=== PATIENT | male | born 1955 | race Caucasian/White ===

== ENCOUNTER 2020-10-14 20:40 | Inpatient (IN) | payer MEDICAID, SELFPAY ==
[2020-10-14] VITALS (10 sets, daily range): BP systolic 104–115; BP diastolic 59–65; PULSE 72–79; RESP 18–30; TEMP 31–38.6; O2SAT 88–92
--- NOTE | 2020-10-14 | DI.CT_ITS ---
Exam(s) CT CHEST PE CTA EXAM: CT CHEST PE CTA CLINICAL HISTORY: Covid, elevated d-dimer, hypoxemia. TECHNIQUE: Imaging Protocol: Axial CT angiography was performed with multi-slice acquisition and mu lti-planar and/or 3D reconstructions. CONTRAST MATERIAL: Intravenous: Omnipaque 350 Contrast volume:100 cc COMPARISON: No exams were available for comparison FINDINGS: Pulmonary Arteries: Evaluation somewhat limited due to respiratory motion at the lung bases. No evid ence of filling defect to suggest pulmonary emboli. Tracheobronchial tree: Patent where visualized. Mediastinum and Silvia: No dominant adenopathy or fluid collection. Pulmonary parenchyma: Bilateral patchy infiltrates, greatest in the left upper lobe. Atelectasis lef t lung base. Pleura: No effusion or pneumothorax. Heart: The heart is mildly dilated. Mild coronary artery calcifications are seen. Aorta: Thoracic aorta non-dilated. No dissection. Upper abdomen: Unremarkable. Bones: Unremarkable for age. IMPRESSION: No evidence of pulmonary embolism. Bilateral patchy infiltrates consistent patient's history of COVID RADIATION DOSE DELIVERED: 673.29mGy.cm Total DLP DATA REPOSITORY: All CT scans at this facility are submitted to the National Radiology Data Registry (NRDR) Dose Index Registry (DIR) with the [employer] (ACR). RADIATION OPTIMIZATION: All CT scans at this facility use at least one of these dose optimization te chniques: automated exposure control; mA and/or kV adjustment per patient size (includes targeted exa ms where dose is matched to clinical indication); or iterative reconstruction.
[2020-10-14 22:08] LABS: LDH 319 U/L (85-227)
[2020-10-14 22:09] LABS: Troponin I < 0.05 ng/mL (<0.06)
[2020-10-14 22:11] LABS: C-Reactive Protein 13.25 mg/dL (0.0-0.3)
[2020-10-14 22:24] LABS: D-Dimer 1588 ng/mlFEU (<500)
--- NOTE | 2020-10-14 22:32 | W.PM.HP.N ---
Date of service: 10/14/20 Time of Service: 22:33 Assessment and Plan Assessment and plan (1) Pneumonia due to COVID-19 virus: Status: Acute Assessment and plan: Moderate supplemental O2 demands. Resp to evaluate and begin High Flow NC vs BiPAP Remdesivir 200mg IV now, then 100mg daily. Dexamethasone 6 mg IV nightly. Lipitor 40mg nightly. Inflammatory markers obtained and will trend. Procalcitonin pending. He was initially given a dose of Rocephin and then sent home on Azithromycin when he left AMA from [facility]. CTA chest ordered. Consider antibiotics for possible superimposed bacterial pneumonia. Pulmonary medicine consulted. (2) Diabetes mellitus type 2 in obese: Status: Acute Assessment and plan: He takes metformin at home. Will hold; will be receiving IV contrast for CTA chest. AC and HS glucose monitoring. Sliding scale insulin correction dosing. Diabetic diet. (3) MAHESH (obstructive sleep apnea): Status: Chronic Assessment and plan: He dose have a home CPAP appliance. Not currently here. (4) Hypertension: Status: Chronic Assessment and plan: Cont home lisinopril at 20mg daily. Monitor. (5) High cholesterol: Status: Chronic Assessment and plan: On atorvastatin 20mg daily at home. Increase to 40mg daily. History of Present Illness History of Present Illness Chief Complaint: Shortness of breath Narrative: This is a 64 yo male that was a direct admit from the ED at ; no beds available there or at the area tertiary care hospitals. He has a PMH of DM2, HLD, MAHESH, HTN. He initially presented to [facility] on 10/12/2020 d/t shortness of breath. He was febrile and Covid 19 was positive. CXR concerning for PNA. Given IV Rocephin and Azithromycin in the ED. Pt refused to stay and left AMA. Home O2 was, [id number] arranged for him. He stated he quarantined at home. At the time of the second presentation via EMS, to [facility] ED, he continued to be short of air and hypoxic with O2 saturations in the 80's. He was initiated on a nonrebreather. He endorsed feeling lightheaded at home and he subsequently fell and hit his scalp on the corner of a desk; incurring a laceration. He endorses nausea for 1 week. No emesis. No loss of sense of taste. Cough has been minimal; no sputum. WBC count was normal at 6.9. Hgb 13.6. Platelets 176. BUN 16, creatinine 0.9. Na 137. K 3.4. CXR showed a increase from the previous xray of the infiltrate in the left lung. Other patchy areas of infiltrates noted bilaterally. Subsemental atelectasis in the left lower lobe. On arrival at [facility] he required 6L NC to maintain O2 saturation of 88-89%. Temp of 38.6. Inflammatory markers obtained: D-dimer of 1588, ferritin 989, LDH 319, Troponin neg, CRP 13.25. Procal ordered and pending. Review of Systems All systems reviewed & are unremarkable except as noted in HPI and below [facility] Medical History (Updated 10/14/20 @ 23:09 by Miguel Wong MD) Diabetes mellitus High cholesterol Hypertension Obesity Family History Other Cancer Diabetes Social History Smoking/Tobacco Use Status: Former Tobacco Use Quit Date: 09/30/05 Tobacco: How many years used: 12 Smoking risk assessment performed?: Yes Alcohol Intake: never Drug use: Never Do you feel safe at home: Yes Do you feel safe in your relationship?: No Additional Social history: pt claimed he did not hit/hurt on his past relationships Exam Const General: cooperative and no acute distress Nutritional Appearance: obese Orientation: alert and oriented x3 HENWV Head: normocephalic and laceration (8 cm at crown of head; margins approximated with dermabond (at [facility])) Eyes Sclera: sclerae normal Pupils: PERRL Neck Neck: full ROM and no JVD Resp Effort & Inspection: normal respiratory effort Auscultation: clear to auscultation bilaterally (anteriorly) Cardio Rate: regular rate Rhythm: regular rhythm Heart Sounds: S1 normal and S2 normal GI Palpation: soft and nontender Skin General skin exam: no rashes or lesions noted Neuro General: moves all extremities Cranial Nerves: facial strength normal Cognition: normal cognition Speech: speech normal Extrem General: no pedal edema and no calf tenderness Psych Appearance: grossly normal Mental Status: mental status grossly normal Speech and Movement: speech and movement normal Mood: congruent mood Affect: normal affect Results Labs Labs: Laboratory Results - last 24 hr 10/14/20 10/14/20 10/14/20 21:40 21:40 21:40 D-Dimer 1588 H Lactate Dehydrogenase 319 H Troponin I < 0.05 C-Reactive Protein 13.25 H Last Vital Signs Temp 38.6 C H 10/14/20 22:00 Pulse 73 10/14/20 22:00 Resp 25 H 10/14/20 22:00 BP 110/60 10/14/20 22:00 Pulse Ox 91 L 10/14/20 22:00
[2020-10-14 22:39] LABS: Ferritin 989 ng/mL (26-388)
[2020-10-14 22:49] LABS: Procalcitonin < 0.1 ng/mL
[2020-10-14] MEDS: REMDESIVIR 200 MG in Normal Saline 250 ML 250 MG IVPB (23:00)
[2020-10-14] MEDS: Acetaminophen 325 MG TAB 650 MG PO (23:30)
[2020-10-14] MEDS: Dexamethasone 10 MG/ML VIAL 6 MG IVP (23:30)
[2020-10-14] MEDS: Melatonin 3 MG TAB 4.5 MG PO (23:30)
[2020-10-15] VITALS (48 sets, daily range): BP systolic 94–126; BP diastolic 48–75; PULSE 52–117; RESP 14–33; TEMP 31–37; O2SAT 86–98
[2020-10-15] MEDS: Atorvastatin 40 MG TAB PO ×2 (00:14→21:20)
[2020-10-15] MEDS: Omnipaque 350 MG/ML 100 ML BTL IJ (00:27)
[2020-10-15] MEDS: Normal Saline Flush 10 ML SYR IVP ×2 (00:51→21:19)
--- NOTE | 2020-10-15 01:23 | DI.VRAD_ITS ---
PROCEDURE INFORMATION: Exam: CTA Chest With Contrast Exam date and time: 10/14/2020 10:50 PM Age: 64 years old Clinical indication: Abnormal findings; Abnormal diagnostic tests; Fever and shortness of breath and other: Hypoxemia; Patient HX: Covid, elevated d-dimer, hypoxemia TECHNIQUE: Imaging protocol: Computed tomographic angiography of the chest with contrast. 3D rendering (Not supervised by radiologist): MIP and/or 3D reconstructed images were created by the technologist. Radiation optimization: All CT scans at this facility use at least one of these dose optimization techniques: automated exposure control; mA and/or kV adjustment per patient size (includes targeted exams where dose is matched to clinical indication); or iterative reconstruction. Contrast material: OMNIPAQUE 350; Contrast volume: 100 ml; Contrast route: INTRAVENOUS (IV); COMPARISON: No relevant prior studies available. FINDINGS: Pulmonary arteries: Evaluation of the very distal subsegmental pulmonary artery branches is limited due to respiratory motion artifact and contrast bolus timing. No evidence for a pulmonary embolism within the remaining pulmonary arteries. No large central or saddle embolus. Aorta: The thoracic aorta opacifies normally with contrast without aneurysm or dissection. Lungs: Patchy bilateral reticulonodular pulmonary opacities is seen with more confluent crazy paving opacification seen within the bilateral upper lobes, left greater than right. Pleural spaces: A tiny left-sided pleural effusion is seen. No right-sided pleural effusion. Heart: The heart is mildly enlarged. No pericardial effusion. No evidence for right heart strain. RV/LV ratio 0.8. Mediastinal space: The esophagus is dilated and patulous. Mild wall thickening within the distal esophagus. Tiny hiatal hernia. Lymph nodes: Prominent lymph nodes are seen within the mediastinum and bilateral manuel, likely reactive. Liver: The liver is moderately enlarged and significantly fatty infiltrated. Gallbladder and bile ducts: The imaged gallbladder is normal appearance. Pancreas: The imaged portions of the pancreas are normal appearance. The pancreatic duct is normal appearance. Spleen: Mild splenomegaly. Adrenal glands: The bilateral adrenal glands are normal appearance. Kidneys and ureters: The bilateral superior renal poles are normal appearance. Stomach and bowel: Mild wall thickening within the gastric folds. Bones/joints: Diffuse idiopathic skeletal hyperostosis throughout the mid and lower thoracic spine. No evidence for acute compression fracture. Soft tissues: Unremarkable. IMPRESSION: 1. No evidence for a pulmonary embolism. Please note, the very distal subsegmental branches are not well evaluated due to respiratory motion artifact and contrast bolus timing. No thoracic aortic aneurysm or evidence for right heart strain. 2. Low lung volumes with diffuse patchy pulmonary infiltrate, concordant with Covid-19 pneumonia. This involves approximately 60-70% of the lung parenchyma. 3. Gastroesophagitis. Dictated and Authenticated by: Pari Carrera MD. Ordering:JAJA Rivera MD
--- NOTE | 2020-10-15 02:51 | NUR.NOTE ---
Nursing Note: Patient taken down for CT Chest with contrast at 00:30H by pt's bed, connected to Oxymask 10L SpO2 96%, this rfp writer and JEANCARLOS Segura escorted the pt to CT scan room. Pt came back to room at 01:05H.
[2020-10-15 06:55] LABS: Abs Immature Grans 0.08 10^3/uL (0.0-0.06); HCT 37.8 % (40.0-50.0); HGB 12.7 g/dL (13.5-17.5); MCH 30.9 pg (27.0-33.0); MCHC 33.6 % (32.0-36.0); MPV 10.1 fL (8.0-11.0); Nucleated RBC 0 %; Platelet Count 190 10^3/uL (130-400); RBC 4.11 10^6/uL (4.36-5.78); RDW 12.2 % (11.8-14.1); WBC 4.59 10^3/uL (4.4-10.8)
[2020-10-15 07:15] LABS: ALT 45 U/L (16-63); AST 37 U/L (15-37); Albumin 2.4 g/dL (3.4-5.0); Alkaline Phosphatase 59 U/L (46-116); Anion Gap 8.5 mmol/L (3-11); BUN 15 mg/dL (7-18); Bilirubin, Total 0.7 mg/dL (0.2-1.0); C-Reactive Protein 12.86 mg/dL (0.0-0.3); CO2 28.5 mmol/L (21.0-32.0); CREATININE 0.9 mg/dL (0.70-1.30); Chloride 103 mmol/L (98-107); Glucose 222 mg/dL (74-106); LDH 381 U/L (85-227); Potassium 3.8 mmol/L (3.5-5.1); Sodium 140 mmol/L (136-145); Total Protein 6.8 g/dL (6.4-8.2); Troponin I < 0.05 ng/mL (<0.06)
[2020-10-15 07:23] LABS: Absolute Lymphocyte Count 0.46 10^3/uL (1.2-3.4); Absolute Monocyte Count 0.09 10^3/uL (0.1-0.8); Absolute Neutrophil Count 4.04 10^3/uL (1.2-6.7); Atypical Lymphocytes % 3; Bands % 7; Diff Comment Manual Differential; Magnesium 1.8 mg/dL (1.8-2.4); RBC Morphology Normal
[2020-10-15 07:47] LABS: D-Dimer 1484 ng/mlFEU (<500)
[2020-10-15 08:04] LABS: Ferritin 1471 ng/mL (26-388)
--- NOTE | 2020-10-15 08:30 | RT.EKG_ITS ---
APPROVED REPORT Exam: Resting ECG Reason for Exam: wide complex tachycardia Patient Location: I HR:71 bpm ECG Measurements Heart Rate 71 AXIS MO 156 P 13 QRSd 97 QRS -32 QT 419 T -26 QTc 456 Conclusion Sinus rhythm...normal P axis, V-rate 60- 99 Left axis deviation...QRS axis (-30,-90) Nonspecific T abnormalities, inferior leads...T <-0.10mV, II III aVF
[2020-10-15] MEDS: Enoxaparin 40 MG/0.4 ML SYR SC (10:13)
[2020-10-15] MEDS: Lisinopril 20 MG TAB PO (10:13)
[2020-10-15] MEDS: Insulin Aspart 300 UNITS/3 ML PEN SC ×3 (10:13→17:18)
--- NOTE | 2020-10-15 13:07 | PDOC.CMIN ---
- If Service Date Differs Date of service: 10/15/20 Time of Service: 13:08 Care Management Initial Assess REASON FOR HOSPITALIZATION:: COVID positive, Pneumonia PAST MEDICAL HISTORY/PAST SURGICAL HISTORY:: Diabetes mellitus. High cholesterol. Hypertension. Obesity PREVIOUS FUNCTIONAL STATUS/SOCIAL/FAMILY SUPPORTS:: Resides in [place], [place], . His NOK is his daughter, Kathi Juarez. Prior to admission he required oxygen therapy, transportation. CURRENT FUNCTIONAL STATUS:: Alistair is on Covid precautions in the ICU, he transferred from [facility]. ADVANCE DIRECTIVES:: None on file at [facility]. Has patient been provided with info about the portal/API?: No Did the patient sign up for the portal?: No CODE STATUS:: Full Code INSURANCE COVERAGE / FINANCIAL ISSUES:: Medicaid CURRENT HOME/COMMUNITY SERVICES/EQUIPMENT:: Grab bars, oxygen, hand held shower PRIMARY CARE PHYSICIAN:: Aishwarya Aiken POTENTIAL DISCHARGE NEEDS:: Follow up appointments. PATIENT/FAMILY EDUCATION NEEDS:: Review of discharge instructions, discuss Ask Me Three. ANTICIPATED BARRIERS TO DISCHARGE:: None identified. TRANSPORTATION:: Via private vehicle with [id number]. PLAN:: Alistair remains in the ICU at [facility]-being treated for Covid Pneumonia. CM continues to follow.
--- NOTE | 2020-10-15 13:23 | PUCC_ITS ---
General Date of Service Date of service: 10/15/20 Time of Service: 08:30 Reason for Admission to ICU: COVID Pneumonia Assessment and Plan Assessment and plan (1) Pneumonia due to COVID-19 virus: Status: Acute (2) Respiratory failure with hypoxia: Status: Acute Assessment and plan: This is a 64-year-old male with hypoxic respiratory failure due to Covid pneumonia. He is receiving remdesivir and Decadron and did receive 1 dose today of sarilumab as his inflammatory markers were significantly elevated. He is unvaccinated and when I asked him why he said he was not sure he just did not want to get it. He is unsure where he caught COVID from but has been feeling ill for at least a week. His obesity and MAHESH will make him more difficult to properly oxygenate and and ventilate however he seems to do well on CPAP therapy. Recent data has shown that CPAP is superior to high flow nasal cannula in COVID-19 patients and so would recommend he remain on CPAP as much as possible with high flow nasal cannula use for breaks. He should remain on CPAP for the entire night. Once he begins to improve we can start weaning down his CPAP usage. Qualifiers: Chronicity: acute Qualified Code(s): J96.01 - Acute respiratory failure with hypoxia Recommendations Pulmonary: Hypoxic respiratory failure - continue CPAP for sat >90% - can use HFNC for breaks - CPAP overnight - would recommend diuresis - proning as much as possible - aspiration precautions MAHESH - has a home unit Cardiac: Hypertension - on lisinopril, I recommend holding this in order to facilitate diuresis and prevent MARY - if becoming hypertensive can use short acting agent such has hydralazine PO prn - once he is less acutely ill then we can restart the ACEI Renal: No acute concerns, but again would recommend diuresis to have a negative fluid balance by tomorrow - discontinue any IVF - electrolyte replacement can be done with PO meds - strict I&O's I&O: Intake & Output 10/12/20 10/13/20 10/14/20 10/15/20 23:59 23:59 23:59 23:59 Intake Total 260 / 260 530 / 530 Output Total 250 / 250 750 / 750 Balance -220 / -220 Weight 123 kg 123 kg Daily Fluid Goal:: -500cc to -1L GI Nutrition: Ok for diet Date of Last Bowel Movement: 10/14/20 Infectious Disease: COVID Pneumonia - continue remdesivir and Decadron - procalcitonin is negative - no indication for antibiotics at this time - blood cultures pending - s/p Sarilumab Hematologic: No acute concerns Neurologic: No acute concerns delerium prevention with normal day/night cycles Endocrine: Diabetes - on SSI Lines: PIV Prophylaxis: Lovenox for DVT ppx No indication for GI ppx at this time I spent a total of 60 minutes with this patient including bedside assessment, rounding with nursing and respiratory therapy, coordination of care with the hospitalist, precharting and documentation. Code Status: Resuscitation Status Full Code Subjective Critical and life-threatening events over the past 24 hours: This is a 64-year-old male with a medical history of obesity, MAHESH, diabetes who was not COVID-19 vaccinated who presents to the emergency department at [facility] for shortness of breath. He was discovered to have Covid pneumonia however they had no beds at [facility] and so was sent here as there were also no beds at any of the area at [place] or [facility]. He did present previously on 10/12/2020 to the [facility] ER and was recommended to be admitted however he left AMA. He was arranged for home oxygen at that time and stated that he quarantined at home however progressively worsened and was found to be saturating in the 80s. He initially was slated to go to [facility] however upon arrival was found to be quite hypoxic requiring high flow nasal cannula and so was placed in the ICU. He also underwent a chest CT that shows multi lobar pneumonia with early signs of organization consistent with COVID-19 pneumonia. This morning he states he is feeling okay. He was on high flow night and nasal cannula during my interview however had frequent desaturations to the mid 80s. His inflammatory markers were found to be elevated however he has normal transaminases. Exam Const General: no acute distress Nutritional Appearance: obese HENSD Head: normocephalic Ears: external ears normal General nose exam: nasal mucous membranes and turbinates normal Face and sinus: sinuses nontender Mouth: oropharynx normal and moist mucous membranes Teeth and gingiva: dentition normal Eyes General: appearance normal, both eyes and all related structures Pupils: PERRL Neck Neck: normal visual inspection and no lymphadenopathy Chest Chest: normal inspection of the chest Resp Effort & Inspection: normal respiratory effort Auscultation: clear to auscultation bilaterally, diminished lung sounds (due to body habitus and COVID stethoscope) bilaterally, no rales, no rhonchi and no wheezes Cardio Rate: regular rate Rhythm: regular rhythm Heart Sounds: S1 normal, S2 normal and no murmurs Pulses: radial pulses present bilaterally GI Inspection: normal to inspection Palpation: soft Skin General skin exam: no rashes or lesions noted Neuro General: patient alert, patient awake and patient oriented x3 Extrem General: no clubbing, no cyanosis and edema Laterality: bilateral Psych Mental Status: mental status grossly normal Affect: normal affect Attitude: cooperative Most Recent VS/Results Last Vital Signs Temp 36.1 C L 10/15/20 11:30 Pulse 71 10/15/20 10:20 Resp 14 10/15/20 10:20 BP 117/75 10/15/20 10:01 Pulse Ox 97 10/15/20 12:33 Laboratory Results - last 24 hr 10/14/20 10/14/20 10/14/20 21:40 21:40 21:40 WBC RBC Hgb Hct MCV MCH MCHC RDW Plt Count MPV Immature Gran % Neutrophils % Band Neutrophils % Lymphocytes % Atypical Lymphs % Monocytes % Eosinophils % Basophils % Nucleated RBC % Absolute Neutrophils Absolute Lymphocytes Absolute Monocytes Absolute Eosinophils Absolute Basophils RBC Morphology D-Dimer 1588 H Sodium Potassium Chloride Carbon Dioxide Anion Gap BUN Creatinine Estimated GFR/1.73 m2 Glucose Calcium Magnesium Ferritin 989 H Total Bilirubin AST ALT Alkaline Phosphatase Lactate Dehydrogenase Troponin I C-Reactive Protein 13.25 H Total Protein Albumin Procalcitonin < 0.1 10/14/20 10/15/20 10/15/20 21:40 06:30 06:30 WBC RBC Hgb Hct MCV MCH MCHC RDW Plt Count MPV Immature Gran % Neutrophils % Band Neutrophils % Lymphocytes % Atypical Lymphs % Monocytes % Eosinophils % Basophils % Nucleated RBC % Absolute Neutrophils Absolute Lymphocytes Absolute Monocytes Absolute Eosinophils Absolute Basophils RBC Morphology D-Dimer Sodium 140 Potassium 3.8 Chloride 103 Carbon Dioxide 28.5 Anion Gap 8.5 BUN 15 Creatinine 0.9 Estimated GFR/1.73 m2 >= 60.00 Glucose 222 H Calcium 8.0 L Magnesium 1.8 Ferritin 1471 H Total Bilirubin 0.7 AST 37 ALT 45 Alkaline Phosphatase 59 Lactate Dehydrogenase 319 H 381 H Troponin I < 0.05 < 0.05 C-Reactive Protein 12.86 H Total Protein 6.8 Albumin 2.4 L Procalcitonin 10/15/20 10/15/20 06:30 06:30 WBC 4.59 RBC 4.11 L Hgb 12.7 L Hct 37.8 L MCV 92.0 MCH 30.9 MCHC 33.6 RDW 12.2 Plt Count 190 MPV 10.1 Immature Gran % 0.0 Neutrophils % 81.0 Band Neutrophils % 7 Lymphocytes % 7.0 Atypical Lymphs % 3 Monocytes % 2.0 Eosinophils % 0.0 Basophils % 0.0 Nucleated RBC % 0 Absolute Neutrophils 4.04 Absolute Lymphocytes 0.46 L Absolute Monocytes 0.09 L Absolute Eosinophils 0.00 Absolute Basophils 0.00 RBC Morphology Normal D-Dimer 1484 H Sodium Potassium Chloride Carbon Dioxide Anion Gap BUN Creatinine Estimated GFR/1.73 m2 Glucose Calcium Magnesium Ferritin Total Bilirubin AST ALT Alkaline Phosphatase Lactate Dehydrogenase Troponin I C-Reactive Protein Total Protein Albumin Procalcitonin Review of Systems All systems reviewed & are unremarkable except as noted in HPI and below Constitutional Constitutional: Reports body ache(s), Reports fatigue and Reports snoring Cardiovascular Cardiovascular: Reports dyspnea, Reports dyspnea on exertion and Reports orthopnea Respiratory Respiratory: Reports cough, Reports dyspnea, Reports dyspnea on exertion and Reports snoring Endocrine Endocrine: Reports fatigue
[2020-10-15] MEDS: Dexamethasone 10 MG/ML VIAL 6 MG IVP (21:19)
[2020-10-15] MEDS: Melatonin 3 MG TAB 4.5 MG PO (21:20)
[2020-10-16] VITALS (38 sets, daily range): BP systolic 90–161; BP diastolic 35–123; PULSE 50–107; RESP 16–30; TEMP 31–36.3; O2SAT 88–97
--- NOTE | 2020-10-16 08:10 | W.PM.PROGNOT ---
Date of Service Date of service: 10/15/20 Time of Service: 12:10 Assessment and Plan Assessment and plan (1) Pneumonia due to COVID-19 virus: Status: Acute Assessment and plan: Moderate supplemental O2 demands. Resp to evaluate and begin High Flow NC vs BiPAP Remdesivir 200mg IV given, then 100mg daily. Dexamethasone 6 mg IV nightly. Lipitor 40mg nightly. Inflammatory markers obtained and will trend. Procalcitonin neg He was initially given a dose of Rocephin and then sent home on Azithromycin when he left AMA from [facility]. CTA chest; No evidence of pulmonary embolism. Bilateral patchy infiltrates consistent patient's history of COVID Pulmonary medicine consulted. (2) Diabetes mellitus type 2 in obese: Status: Acute Assessment and plan: He takes metformin at home. Will hold; will be receiving IV contrast for CTA chest. AC and HS glucose monitoring. Sliding scale insulin correction dosing. Diabetic diet. Glucose running high; likely d/t IV steroid. Adjusting insulin. (3) MAHESH (obstructive sleep apnea): Status: Chronic Assessment and plan: Utilizing CPAP as COVID 19 intervention. Uses CPAP at home. (4) Hypertension: Status: Chronic Assessment and plan: Cont home lisinopril at 20mg daily. Normotensive. Monitor. (5) High cholesterol: Status: Chronic Assessment and plan: On atorvastatin 20mg daily at home. Increase to 40mg daily. Subjective Subjective Patient reports: tolerating a regular diet and afebrile; denies nausea Interval history since last seen: Tolerating CPAP Exam Const General: cooperative and no acute distress Nutritional Appearance: obese Orientation: alert and oriented x3 HENMT Head: normocephalic and laceration (8 cm at crown of head; margins approximated with dermabond (at [facility])) Eyes Sclera: sclerae normal Pupils: PERRL Neck Neck: full ROM and no JVD Resp Effort & Inspection: normal respiratory effort Auscultation: clear to auscultation bilaterally (anteriorly) Cardio Rate: regular rate Rhythm: regular rhythm Heart Sounds: S1 normal and S2 normal GI Palpation: soft and nontender Skin General skin exam: no rashes or lesions noted Neuro General: moves all extremities Cranial Nerves: facial strength normal Cognition: normal cognition Speech: speech normal Extrem General: no pedal edema and no calf tenderness Psych Appearance: grossly normal Mental Status: mental status grossly normal Speech and Movement: speech and movement normal Mood: congruent mood Affect: normal affect Objective Last Vital Signs Temp 36.2 C L 10/16/20 04:42 Pulse 55 L 10/16/20 06:01 Resp 24 10/16/20 06:01 BP 107/52 L 10/16/20 06:01 Pulse Ox 96 10/16/20 06:01
[2020-10-16 09:03] LABS: D-Dimer 1397 ng/mlFEU (<500)
[2020-10-16 09:11] LABS: C-Reactive Protein 6.84 mg/dL (0.0-0.3)
[2020-10-16 09:13] LABS: Ferritin 1644 ng/mL (26-388)
[2020-10-16] MEDS: Enoxaparin 40 MG/0.4 ML SYR SC (09:51)
[2020-10-16] MEDS: Lisinopril 20 MG TAB PO (09:51)
[2020-10-16] MEDS: Insulin Aspart 300 UNITS/3 ML PEN SC ×3 (09:52→17:15)
[2020-10-16] MEDS: Insulin Glargine 300 UNITS/3 ML PEN 15 UNITS SC (10:09)
--- NOTE | 2020-10-16 11:31 | W.PULMCC ---
General Date of Service Date of service: 10/16/20 Time of Service: 08:45 Reason for Admission to ICU: COVID Pneumonia Assessment and Plan Assessment and plan (1) Pneumonia due to COVID-19 virus: Status: Acute (2) Respiratory failure with hypoxia: Status: Acute Assessment and plan: This is a 64-year-old male with hypoxic respiratory failure due to Covid pneumonia. He is receiving remdesivir and Decadron and did receive 1 dose today of sarilumab as his inflammatory markers were significantly elevated. He is unvaccinated and when I asked him why he said he was not sure he just did not want to get it. He is unsure where he caught COVID from but has been feeling ill for at least a week. His obesity and MAHESH will make him more difficult to properly oxygenate and and ventilate however he seems to do well on CPAP therapy. Recent data has shown that CPAP is superior to high flow nasal cannula in COVID-19 patients and so would recommend he remain on CPAP as much as possible with high flow nasal cannula use for breaks. He should remain on CPAP for the entire night. Once he begins to improve we can start weaning down his CPAP usage. His CRP decreased from 12-6 with the administration of sarilumab. Qualifiers: Chronicity: acute Qualified Code(s): J96.01 - Acute respiratory failure with hypoxia Recommendations Pulmonary: Hypoxic respiratory failure - continue CPAP for sat >90% - can use HFNC for breaks - CPAP overnight - would recommend diuresis - proning as much as possible - aspiration precautions MAHESH - has a home unit Cardiac: Hypertension - on lisinopril, I recommend holding this in order to facilitate diuresis and prevent MARY - if becoming hypertensive can use short acting agent such has hydralazine PO prn - once he is less acutely ill then we can restart the ACEI Renal: No acute concern - discontinue any IVF - electrolyte replacement can be done with PO meds - strict I&O's I&O: Intake & Output 10/13/20 10/14/20 10/15/20 10/16/20 23:59 23:59 23:59 23:59 Intake Total 260 / 260 790 / 790 Output Total 250 / 250 1100 / 1100 400 / 400 Balance -310 / -310 -400 / -400 Weight 123 kg 123 kg 121.5 kg Daily Fluid Goal:: -1L in 24 hours GI Nutrition: OK for diet Date of Last Bowel Movement: 10/15/20 Infectious Disease: COVID Pneumonia - continue remdesivir and Decadron - procalcitonin is negative - no indication for antibiotics at this time - blood cultures pending - s/p Sarilumab Hematologic: No acute concerns Neurologic: No acute concerns - delerium prevention Endocrine: Diabetes - on SSI Lines: PIV Prophylaxis: Lovenox for DVT ppx No indication for GI ppx Spent a total of 30 minutes with this patient including chart review, documentation, rounding with nursing and respiratory therapy, as well as assessment. Code Status: Resuscitation Status Full Code Subjective Critical and life-threatening events over the past 24 hours: Patient remained on CPAP overnight and did quite well with his FiO2 requirements dropping to 45%. He states it is certainly easier to breathe while he is wearing the mask. He is doing his best to lay on his side but is having trouble laying on his stomach. Exam Const General: no acute distress Nutritional Appearance: obese HENMT Head: normocephalic Ears: external ears normal General nose exam: nasal mucous membranes and turbinates normal Face and sinus: sinuses nontender Mouth: oropharynx normal and moist mucous membranes Teeth and gingiva: dentition normal Eyes General: appearance normal, both eyes and all related structures Pupils: PERRL Neck Neck: normal visual inspection and no lymphadenopathy Chest Chest: normal inspection of the chest Resp Effort & Inspection: normal respiratory effort Auscultation: clear to auscultation bilaterally, diminished lung sounds (due to body habitus and COVID stethoscope) bilaterally, no rales, no rhonchi and no wheezes Cardio Rate: regular rate Rhythm: regular rhythm Heart Sounds: S1 normal, S2 normal and no murmurs Pulses: radial pulses present bilaterally GI Inspection: normal to inspection Palpation: soft Skin General skin exam: no rashes or lesions noted Neuro General: patient alert, patient awake and patient oriented x3 Extrem General: no clubbing, no cyanosis and edema Laterality: bilateral Psych Mental Status: mental status grossly normal Affect: normal affect Attitude: cooperative Most Recent VS/Results Last Vital Signs Temp 36.2 C L 10/16/20 04:42 Pulse 76 10/16/20 08:35 Resp 16 10/16/20 08:45 BP 107/52 L 10/16/20 06:01 Pulse Ox 96 10/16/20 08:45 Laboratory Results - last 24 hr 10/16/20 10/16/20 07:45 07:45 D-Dimer 1397 H Ferritin 1644 H C-Reactive Protein 6.84 H Review of Systems All systems reviewed & are unremarkable except as noted in HPI and below Constitutional Constitutional: Reports body ache(s), Reports fatigue and Reports snoring Cardiovascular Cardiovascular: Reports dyspnea, Reports dyspnea on exertion and Reports orthopnea Respiratory Respiratory: Reports cough, Reports dyspnea, Reports dyspnea on exertion and Reports snoring Endocrine Endocrine: Reports fatigue
[2020-10-16] MEDS: Furosemide 40 MG/4 ML VIAL IVP (12:17)
--- NOTE | 2020-10-16 16:24 | CMPROGNOTE_ITS ---
Care Management Progress Note S/O: Alistair remains in the ICU at [facility]-being treated for Covid Pneumonia. Nursing has been in touch with his daughters and he is speaking with them on his cell phone as well. reports Alistair is making medical gains at this time. ID reports he will be off precautions on 10/22/20. CM continues to follow. A: 64 year old male admitted to [facility] from [facility] 10/14/20 for Covid Pneumonia P: Alistair remains in the ICU at [facility]-being treated for Covid Pneumonia. CM continues to follow.
--- NOTE | 2020-10-16 16:57 | PGE_ITS ---
Date of Service Date of service: 10/16/20 Time of Service: 16:57 Assessment and Plan Assessment and plan (1) Pneumonia due to COVID-19 virus: Status: Acute Assessment and plan: Moderate supplemental O2 demands. Resp to evaluate and begin High Flow NC vs BiPAP Remdesivir 200mg IV given, then 100mg daily. Dexamethasone 6 mg IV nightly. Lipitor 40mg nightly. Inflammatory markers obtained and will trend. CRP normalized. Procalcitonin neg He was initially given a dose of Rocephin and then sent home on Azithromycin when [facility] CTA chest; No evidence of pulmonary embolism. Bilateral patchy infiltrates consistent patient's history of COVID Pulmonary medicine consulted. (2) Diabetes mellitus type 2 in obese: Status: Acute Assessment and plan: He takes metformin at home. Will hold; will be receiving IV contrast for CTA chest. AC and HS glucose monitoring. Sliding scale insulin correction dosing. Diabetic diet. Glucose running high; likely d/t IV steroid. Adjusting insulin. (3) MAHESH (obstructive sleep apnea): Status: Chronic Assessment and plan: Utilizing CPAP as COVID 19 intervention. Uses CPAP at home. (4) Hypertension: Status: Chronic Assessment and plan: Cont home lisinopril at 20mg daily. Normotensive. Monitor. (5) High cholesterol: Status: Chronic Assessment and plan: On atorvastatin 20mg daily at home. Increase to 40mg daily. Subjective Subjective Patient reports: tolerating a regular diet and afebrile; denies nausea Interval history since last seen: Tolerating CPAP Exam Const General: cooperative and no acute distress Nutritional Appearance: obese Orientation: alert and oriented x3 HENMT Head: normocephalic and laceration (8 cm at crown of head; margins approximated with dermabond (at [facility])) Eyes Sclera: sclerae normal Pupils: PERRL Neck Neck: full ROM and no JVD Resp Effort & Inspection: normal respiratory effort Auscultation: clear to auscultation bilaterally (anteriorly) Cardio Rate: regular rate Rhythm: regular rhythm Heart Sounds: S1 normal and S2 normal GI Palpation: soft and nontender Skin General skin exam: no rashes or lesions noted Neuro General: moves all extremities Cranial Nerves: facial strength normal Cognition: normal cognition Speech: speech normal Extrem General: no pedal edema and no calf tenderness Psych Appearance: grossly normal Mental Status: mental status grossly normal Speech and Movement: speech and movement normal Mood: congruent mood Affect: normal affect Objective Last Vital Signs Temp 36.1 C L 10/16/20 13:30 Pulse 68 10/16/20 16:28 Resp 19 10/16/20 16:28 BP 107/48 L 10/16/20 16:28 Pulse Ox 92 10/16/20 16:28 Laboratory Results - last 24 hr 10/16/20 10/16/20 07:45 07:45 D-Dimer 1397 H Ferritin 1644 H C-Reactive Protein 6.84 H
--- NOTE | 2020-10-16 17:13 | PHA.REVIEW ---
Pharmacy Admission Review - Admission Clinical Review (Last Updated 10/14/20 @ 23:09 by Miguel Wong MD) Respiratory failure with hypoxia (Acute) Diabetes mellitus type 2 in obese (Acute) Pneumonia due to COVID-19 virus (Acute) Resuscitation Status Full Code Height 6 ft Weight 121.5 kg - Renal Dosing Renal Dosing: BUN 15 mg/dL (7-18) 10/15/20 06:30 Creatinine 0.9 mg/dL (0.70-1.30) 10/15/20 06:30 Medications needing adjustments: Reviewed - Anticoagulation Anticoagulation: Hgb 12.7 g/dL (13.5-17.5) L 10/15/20 06:30 Hct 37.8 % (40.0-50.0) L 10/15/20 06:30 Plt Count 190 10^3/uL (130-400) 10/15/20 06:30 Creatinine 0.9 mg/dL (0.70-1.30) 10/15/20 06:30 DVT Prophylaxis: Reviewed Medications: Enoxaparin - Opiate Usage Evaluate Pain Scale/Pains Meds: N/A - Relevant Labs Sodium 140 mmol/L (136-145) 10/15/20 06:30 Potassium 3.8 mmol/L (3.5-5.1) 10/15/20 06:30 Chloride 103 mmol/L (98-107) 10/15/20 06:30 Magnesium 1.8 mg/dL (1.8-2.4) 10/15/20 06:30 C-Reactive Protein 6.84 mg/dL (0.0-0.3) H 10/16/20 07:45 Electrolytes, C-Reactive P, ESR: Reviewed - DM Control DM Control: Glucose 222 mg/dL (74-106) H 10/15/20 06:30 Finger Stick Blood Glucose 333 Finger Stick Blood Glucose 333 Finger Stick Blood Glucose 333 Finger Stick Blood Glucose 369 Finger Stick Blood Glucose 369 Insulin Dosing: Reviewed (glargine at 15u daily, aspart per SS) - Heart Failure/NY Heart Failure/NY: Troponin I < 0.05 ng/mL (<0.06) 10/15/20 06:30 EF%, HALLEY's, B-Blockers, Diuretics: Reviewed - BP Control BP Control: Blood Pressure 107/48 Blood Pressure 161/123 Blood Pressure 90/47 Blood Pressure 93/56 Blood Pressure 111/56 Blood Pressure 108/85 Blood Pressure 93/42 Blood Pressure 107/52 Blood Pressure 109/54 - Qtc Review If Elevated: N/A - IV to PO Switch IV Medications: Reviewed - Home Meds Home Med List reviewed: Reviewed Relevent Home Meds Not ordered & why?: none reported - Current meds Current Medication Order Review: Reviewed (decadron, remdisivir, and x1 200mg dose of sarilumab given subcutaneously as tocilizumab is currently backordered) - Comments Comments/Follow Ups: sarilumab dose could possibly be repeated if inflammatory markers remain elevated; will continue to monitor BMP and glucose control
[2020-10-16] MEDS: Atorvastatin 40 MG TAB PO (19:30)
[2020-10-16] MEDS: Melatonin 3 MG TAB 4.5 MG PO (22:27)
[2020-10-16] MEDS: Dexamethasone 10 MG/ML VIAL 6 MG IVP (22:29)
[2020-10-16] MEDS: Normal Saline Flush 10 ML SYR IVP (22:31)
[2020-10-17] VITALS (39 sets, daily range): BP systolic 90–133; BP diastolic 35–65; PULSE 48–92; RESP 12–28; TEMP 31–36.6; O2SAT 91–98
[2020-10-17] MEDS: Normal Saline Flush 10 ML SYR IVP ×3 (00:43→21:35)
[2020-10-17] MEDS: Lisinopril 20 MG TAB PO (09:17)
[2020-10-17] MEDS: Enoxaparin 40 MG/0.4 ML SYR SC (09:17)
[2020-10-17] MEDS: Insulin Aspart 300 UNITS/3 ML PEN SC ×3 (10:23→17:28)
[2020-10-17] MEDS: Insulin Glargine 300 UNITS/3 ML PEN 15 UNITS SC (10:24)
--- NOTE | 2020-10-17 14:10 | W.INDIABCONS ---
Date of service: 10/17/20 Time of Service: 14:10 Diabetes Inpatient Consult DESCRIPTION/ASSESSMENT: 64 year old male admitted with covid 19 PNA witih hx of obesity, DM2, HTN, HLD. No recent A1C. Blood sugar doing well on sliding scale insulin. Will offer Dm education when out of isolation. Following diabetic diet with adequate intake. Not considered at nutritional risk. PLAN: Continue current meal plan, will follow up once out of isolation scheduled for 10/22/20 Time Spent in Nutritional Counseling and Treatment: 0
--- NOTE | 2020-10-17 16:12 | W.PM.PROGNOT ---
Date of Service Date of service: 10/17/20 Time of Service: 16:12 Assessment and Plan Assessment and plan (1) Pneumonia due to COVID-19 virus: Status: Acute Assessment and plan: Moderate supplemental O2 demands. Tolerating CPaP with interval highflow nasal cannula Planning highflow nasal cannula trial for the night Remdesivir 200mg IV given, then 100mg daily. Dexamethasone 6 mg IV nightly. Lipitor 40mg nightly. Inflammatory markers obtained and will trend. CRP normalized. Procalcitonin neg He was initially given a dose of Rocephin and then sent home on Azithromycin when he left [facility] from [facility]. CTA chest; No evidence of pulmonary embolism. Bilateral patchy infiltrates consistent patient's history of COVID Pulmonary medicine consulted. (2) Diabetes mellitus type 2 in obese: Status: Acute Assessment and plan: He takes metformin at home. Will hold; will be receiving IV contrast for CTA chest. AC and HS glucose monitoring. Sliding scale insulin correction dosing. Added QAC insulin dosing Diabetic diet. Glucose running high; likely d/t IV steroid. Adjusting insulin. (3) MAHESH (obstructive sleep apnea): Status: Chronic Assessment and plan: Utilizing CPAP as COVID 19 intervention. Uses CPAP at home. (4) Hypertension: Status: Chronic Assessment and plan: Cont home lisinopril at 20mg daily. Normotensive. Monitor. (5) High cholesterol: Status: Chronic Assessment and plan: On atorvastatin 20mg daily at home. Increase to 40mg daily. Subjective Subjective Patient reports: no new complaints, feels better, tolerating a regular diet and afebrile; denies nausea and vomiting Interval history since last seen: Spoke with patient via phone. Exam Const General: cooperative Orientation: alert and oriented x3 Other: Exam deferred. Objective Last Vital Signs Temp 36.2 C L 10/17/20 00:20 Pulse 92 H 10/17/20 12:54 Resp 24 10/17/20 14:00 BP 119/64 10/17/20 12:54 Pulse Ox 94 10/17/20 14:00
--- NOTE | 2020-10-17 16:50 | PDOC.CMPRO ---
Care Management Progress Note S/O: Alistair remains in the ICU at [facility]-being treated for Covid Pneumonia. Nursing has been in touch with his daughters and he is speaking with them on his cell phone as well. reports Alistair is making medical gains at this time. ID reports he will be off precautions on 10/22/20. No changes to plan at this time. CM continues to follow. A: 64 year old male admitted to [facility] from [facility] 10/14/20 for Covid Pneumonia P: Alistair remains in the ICU at [facility]-being treated for Covid Pneumonia. CM continues to follow.
[2020-10-17] MEDS: Insulin Aspart 300 UNITS/3 ML PEN 10 UNITS SC (17:29)
[2020-10-17] MEDS: Melatonin 3 MG TAB 4.5 MG PO (21:36)
[2020-10-17] MEDS: Dexamethasone 10 MG/ML VIAL 6 MG IVP (21:36)
[2020-10-17] MEDS: Atorvastatin 40 MG TAB PO (21:37)
[2020-10-18] VITALS (35 sets, daily range): BP systolic 92–110; BP diastolic 41–79; PULSE 47–79; RESP 12–28; TEMP 31–36.2; O2SAT 92–97
[2020-10-18 06:54] LABS: HCT 40.4 % (40.0-50.0); HGB 13.5 g/dL (13.5-17.5); MCH 30.3 pg (27.0-33.0); MCHC 33.4 % (32.0-36.0); MCV 90.8 fL (80-95); MPV 10.2 fL (8.0-11.0); Nucleated RBC 0 %; Platelet Count 284 10^3/uL (130-400); RBC 4.45 10^6/uL (4.36-5.78); RDW 11.9 % (11.8-14.1); RDW-SD 39.8 fL; WBC 7.53 10^3/uL (4.4-10.8)
[2020-10-18 07:10] LABS: ALT 65 U/L (16-63); AST 38 U/L (15-37); Albumin 2.4 g/dL (3.4-5.0); Alkaline Phosphatase 58 U/L (46-116); Anion Gap 9.3 mmol/L (3-11); BUN 28 mg/dL (7-18); Bilirubin, Total 0.4 mg/dL (0.2-1.0); CO2 27.7 mmol/L (21.0-32.0); Calcium 8.1 mg/dL (8.5-10.1); Chloride 102 mmol/L (98-107); Glucose 283 mg/dL (74-106); Potassium 4.4 mmol/L (3.5-5.1); Sodium 139 mmol/L (136-145); Total Protein 6.4 g/dL (6.4-8.2)
[2020-10-18 07:28] LABS: D-Dimer 921 ng/mlFEU (<500)
[2020-10-18 07:30] LABS: Absolute Lymphocyte Count 0.68 10^3/uL (1.2-3.4); Atypical Lymphocytes % 3; Bands % 1
[2020-10-18 07:31] LABS: Diff Comment Manual Differential; Metamyelocytes % 1; Myelocytes % 1; RBC Morphology Normal
[2020-10-18 07:33] LABS: C-Reactive Protein 1.52 mg/dL (0.0-0.3); Ferritin 859 ng/mL (26-388)
[2020-10-18] MEDS: Lisinopril 20 MG TAB PO (09:01)
[2020-10-18] MEDS: Enoxaparin 40 MG/0.4 ML SYR SC (09:01)
[2020-10-18] MEDS: Insulin Glargine 300 UNITS/3 ML PEN 20 UNITS SC (09:02)
[2020-10-18] MEDS: Insulin Aspart 300 UNITS/3 ML PEN 10 UNITS SC ×3 (09:02→17:00)
[2020-10-18] MEDS: Insulin Aspart 300 UNITS/3 ML PEN SC ×3 (09:02→17:00)
--- NOTE | 2020-10-18 09:06 | W.PULMCC ---
General Date of Service Date of service: 10/18/20 Time of Service: 07:45 Reason for Admission to ICU: COVID-19 Pneumonia Assessment and Plan Assessment and plan (1) Pneumonia due to COVID-19 virus: Status: Acute (2) Respiratory failure with hypoxia: Status: Acute Assessment and plan: This is a 64-year-old male with hypoxic respiratory failure due to Covid pneumonia. He is receiving remdesivir and Decadron and did receive 1 dose today of sarilumab as his inflammatory markers were significantly elevated. He is unvaccinated and when I asked him why he said he was not sure he just did not want to get it. He is unsure where he caught COVID from but has been feeling ill for at least a week prior to admission. His obesity and MAHESH will make him more difficult to properly oxygenate and and ventilate however he seems to do well on CPAP therapy. He should remain on CPAP for the entire night. He can remain on high flow nasal cannula during the day. His CRP decreased from 12-6 with the administration of sarilumab. Qualifiers: Chronicity: acute Qualified Code(s): J96.01 - Acute respiratory failure with hypoxia Recommendations Pulmonary: Hypoxic respiratory failure - continue CPAP for sat >90% at night - can use HFNC during the day - proning as much as possible - aspiration precautions - recommend recliner in room to get out of bed to chair MAHESH - has a home unit but noncompliant Cardiac: Hypertension - on lisinopril, I recommend holding this in order to facilitate diuresis and prevent MARY - if becoming hypertensive can use short acting agent such has hydralazine PO prn - once he is less acutely ill then we can restart the ACEI Renal: o acute concern - discontinue any IVF - electrolyte replacement can be done with PO meds - strict I&O's I&O: Intake & Output 10/15/20 10/16/20 10/17/20 10/18/20 23:59 23:59 23:59 23:59 Intake Total 790 / 790 240 / 240 1420 / 1520 100 / 100 Output Total 1100 / 1100 1974 1875 / 1875 375 / 375 Balance -310 / -310 -1735 / -1735 -455 / -355 -275 / -275 Weight 123 kg 121.5 kg 121.1 kg 121.6 kg Daily Fluid Goal:: even to negative GI Nutrition: OK for diet Date of Last Bowel Movement: 10/17/20 Infectious Disease: COVID Pneumonia - continue remdesivir and Decadron - procalcitonin is negative - no indication for antibiotics at this time - s/p Sarilumab Hematologic: No acute concerns Neurologic: No acute concerns - delerium prevention Endocrine: Diabetes - on SSI Lines: PIV Prophylaxis: Lovenox for DVT ppx No indication for GI ppx I spent a total of 30 minutes with this patient including rounding with respiratory therapy and nursing, coordination of care with the hospitalist service, bedside assessment, chart review and documentation. Code Status: Resuscitation Status Full Code Subjective Critical and life-threatening events over the past 24 hours: Alistair is doing well today. He states his breathing is much better. He is going to the bathroom every day and has a good appetite. Exam Const General: no acute distress Nutritional Appearance: obese HENMT Head: normocephalic Ears: external ears normal General nose exam: nasal mucous membranes and turbinates normal Face and sinus: sinuses nontender Mouth: oropharynx normal and moist mucous membranes Teeth and gingiva: dentition normal Eyes General: appearance normal, both eyes and all related structures Pupils: PERRL Neck Neck: normal visual inspection and no lymphadenopathy Chest Chest: normal inspection of the chest Resp Effort & Inspection: normal respiratory effort Auscultation: clear to auscultation bilaterally, diminished lung sounds (due to body habitus and COVID stethoscope) bilaterally, no rales, no rhonchi and no wheezes Cardio Rate: regular rate Rhythm: regular rhythm Heart Sounds: S1 normal, S2 normal and no murmurs Pulses: radial pulses present bilaterally GI Inspection: normal to inspection Palpation: soft Skin General skin exam: no rashes or lesions noted Neuro General: patient alert, patient awake and patient oriented x3 Extrem General: no clubbing, no cyanosis and edema Laterality: bilateral Psych Mental Status: mental status grossly normal Affect: normal affect Attitude: cooperative Most Recent VS/Results Last Vital Signs Temp 36.2 C L 10/17/20 23:45 Pulse 61 10/18/20 03:49 Resp 20 10/18/20 06:00 BP 110/68 10/18/20 03:47 Pulse Ox 96 10/18/20 06:00 Laboratory Results - last 24 hr 10/18/20 10/18/2010/18/21 06:10 06:10 06:10 WBC RBC Hgb Hct MCV MCH MCHC RDW Plt Count MPV Immature Gran % Neutrophils % Band Neutrophils % Lymphocytes % Atypical Lymphs % Monocytes % Eosinophils % Basophils % Metamyelocytes % Myelocytes % Nucleated RBC % Absolute Neutrophils Absolute Lymphocytes Absolute Monocytes Absolute Eosinophils Absolute Basophils RBC Morphology D-Dimer 921 H Sodium 139 Potassium 4.4 Chloride 102 Carbon Dioxide 27.7 Anion Gap 9.3 BUN 28 H D Creatinine 1.0 Estimated GFR/1.73 m2 >= 60.00 Glucose 283 H Calcium 8.1 L Ferritin 859 H Total Bilirubin 0.4 AST 38 H ALT 65 H Alkaline Phosphatase 58 C-Reactive Protein 1.52 H Total Protein 6.4 Albumin 2.4 L 10/18/20 06:10 WBC 7.53 RBC 4.45 Hgb 13.5 Hct 40.4 MCV 90.8 MCH 30.3 MCHC 33.4 RDW 11.9 Plt Count 284 MPV 10.2 Immature Gran % See Differential Neutrophils % 84.0 Band Neutrophils % 1 Lymphocytes % 6.0 Atypical Lymphs % 3 Monocytes % 4.0 Eosinophils % 0.0 Basophils % 0.0 Metamyelocytes % 1 Myelocytes % 1 Nucleated RBC % 0 Absolute Neutrophils 6.40 Absolute Lymphocytes 0.68 L Absolute Monocytes 0.30 Absolute Eosinophils 0.00 Absolute Basophils 0.00 RBC Morphology Normal D-Dimer Sodium Potassium Chloride Carbon Dioxide Anion Gap BUN Creatinine Estimated GFR/1.73 m2 Glucose Calcium Ferritin Total Bilirubin AST ALT Alkaline Phosphatase C-Reactive Protein Total Protein Albumin Review of Systems All systems reviewed & are unremarkable except as noted in HPI and below Constitutional Constitutional: Denies fatigue and Reports snoring Cardiovascular Cardiovascular: Reports dyspnea, Reports dyspnea on exertion and Denies orthopnea Respiratory Respiratory: Reports cough, Reports dyspnea, Reports dyspnea on exertion and Reports snoring Endocrine Endocrine: Denies fatigue
--- NOTE | 2020-10-18 09:17 | PDOC.CMPRO ---
- If Service Date Differs Date of service: 10/18/20 Time of Service: 10:12 Care Management Progress Note S/O: reports Alistair continues to make medical gains at this time and will transition to M/S status. CM spoke with Alistair over his cell phone. He reported he is incredibly bored, but can't think of anything he actually wants to do. He sounded upbeat, was using good humor and did not sound short of breath-speaking in full sentences. ID reports he will be off precautions on 10/22/20. CM spoke with [place] who reported they could transport him home prior to 10/22 if needed. In speaking with RT, Milind reports Alistair continues to require 30 FiO2 on CPAP and 50 FiO2 nasal cannula, which is equivalent to 8L O2 at home. Milind reports that when Alistair has been weaned to 30% on both machines, a level equal to 4L, he can return home on home O2. Alistair reports once off from precautions, his daughter can transport him home. He reports he continues to keep in touch with his family on the phone, daily. No changes to overall plan at this time. [place] continues to follow. A: 64 year old male admitted to [facility] from [facility] 10/14/20 for Covid Pneumonia P: Alistair remains acute-being treated for Covid Pneumonia. Anticipate he will remain at [facility] through the weekend at this time. [place] continues to follow.
[2020-10-18] MEDS: Normal Saline Flush 10 ML SYR IVP ×2 (16:55→21:14)
--- NOTE | 2020-10-18 20:35 | PGE_ITS ---
Date of Service Date of service: 10/18/20 Time of Service: 20:35 Assessment and Plan Assessment and plan (1) Pneumonia due to COVID-19 virus: Status: Acute Assessment and plan: Diminishing supplemental O2 demands. Tolerating CPaP with interval highflow nasal cannula Remdesivir 200mg IV given, then 100mg daily. Dexamethasone 6 mg IV nightly. Lipitor 40mg nightly. CRP normalized. D dimer level decreasing. Procalcitonin neg He was initially given a dose of Rocephin and then sent home on Azithromycin when he left AMA from [facility]. CTA chest; No evidence of pulmonary embolism. Bilateral patchy infiltrates consistent patient's history of COVID Pulmonary medicine consulted. (2) Diabetes mellitus type 2 in obese: Status: Acute Assessment and plan: He takes metformin at home. Will hold; will be receiving IV contrast for CTA chest. AC and HS glucose monitoring. Sliding scale insulin correction dosing. Added QAC insulin dosing Diabetic diet. Glucose running high; likely d/t IV steroid. Adjusting insulin. (3) MAHESH (obstructive sleep apnea): Status: Chronic Assessment and plan: Utilizing CPAP as COVID 19 intervention. Uses CPAP at home. (4) Hypertension: Status: Chronic Assessment and plan: Cont home lisinopril at 20mg daily. Normotensive. Monitor. (5) High cholesterol: Status: Chronic Assessment and plan: On atorvastatin 20mg daily at home. Increase to 40mg daily. (6) Respiratory failure with hypoxia: Status: Acute Assessment and plan: Acute Secondary to Covid 19 PNA Qualifiers: Chronicity: acute Qualified Code(s): J96.01 - Acute respiratory failure with hypoxia Subjective Subjective Patient reports: feels better and afebrile; denies no new complaints, diarrhea, nausea and vomiting Exam Const General: cooperative Orientation: alert and oriented x3 HENMT Head: laceration (8 cm at crown of head; margins approximated with dermabond (at [facility])) Resp Effort & Inspection: normal respiratory effort Auscultation: clear to auscultation bilaterally and diminished lung sounds Cardio Rate: regular rate Rhythm: regular rhythm Extrem General: no pedal edema and no calf tenderness Objective Last Vital Signs Temp 36.2 C L 10/18/20 15:30 Pulse 50 L 10/18/20 16:01 Resp 28 H 10/18/20 16:01 BP 102/51 L 10/18/20 16:01 Pulse Ox 97 10/18/20 16:01 Laboratory Results - last 24 hr 10/18/20 10/18/20 10/18/20 06:10 06:10 06:10 WBC RBC Hgb Hct MCV MCH MCHC RDW Plt Count MPV Immature Gran % Neutrophils % Band Neutrophils % Lymphocytes % Atypical Lymphs % Monocytes % Eosinophils % Basophils % Metamyelocytes % Myelocytes % Nucleated RBC % Absolute Neutrophils Absolute Lymphocytes Absolute Monocytes Absolute Eosinophils Absolute Basophils RBC Morphology D-Dimer 921 H Sodium 139 Potassium 4.4 Chloride 102 Carbon Dioxide 27.7 Anion Gap 9.3 BUN 28 H D Creatinine 1.0 Estimated GFR/1.73 m2 >= 60.00 Glucose 283 H Calcium 8.1 L Ferritin 859 H Total Bilirubin 0.4 AST 38 H ALT 65 H Alkaline Phosphatase 58 C-Reactive Protein 1.52 H Total Protein 6.4 Albumin 2.4 L 10/18/20 06:10 WBC 7.53 RBC 4.45 Hgb 13.5 Hct 40.4 MCV 90.8 MCH 30.3 MCHC 33.4 RDW 11.9 Plt Count 284 MPV 10.2 Immature Gran % See Differential Neutrophils % 84.0 Band Neutrophils % 1 Lymphocytes % 6.0 Atypical Lymphs % 3 Monocytes % 4.0 Eosinophils % 0.0 Basophils % 0.0 Metamyelocytes % 1 Myelocytes % 1 Nucleated RBC % 0 Absolute Neutrophils 6.40 Absolute Lymphocytes 0.68 L Absolute Monocytes 0.30 Absolute Eosinophils 0.00 Absolute Basophils 0.00 RBC Morphology Normal D-Dimer Sodium Potassium Chloride Carbon Dioxide Anion Gap BUN Creatinine Estimated GFR/1.73 m2 Glucose Calcium Ferritin Total Bilirubin AST ALT Alkaline Phosphatase C-Reactive Protein Total Protein Albumin
[2020-10-18] MEDS: Melatonin 3 MG TAB 4.5 MG PO (21:13)
[2020-10-18] MEDS: Atorvastatin 40 MG TAB PO (21:14)
[2020-10-18] MEDS: Dexamethasone 10 MG/ML VIAL 6 MG IVP (21:14)
[2020-10-19] VITALS (14 sets, daily range): BP systolic 85–115; BP diastolic 41–96; PULSE 47–105; RESP 19–22; TEMP 31; O2SAT 91–96
[2020-10-19] MEDS: Enoxaparin 40 MG/0.4 ML SYR SC (07:31)
[2020-10-19] MEDS: Lisinopril 20 MG TAB PO (07:32)
--- NOTE | 2020-10-19 08:15 | W.PM.PROGNOT ---
Subjective Subjective Interval history since last seen: High flow 40 L 50 % during the day CPAP 10 - 30% FiO2. Self prones (side to side). Ambulatory/independent in the room. Working with IS/acapella. Objective Last Vital Signs Temp 36.0 C L 10/18/20 23:50 Pulse 47 L 10/19/20 04:32 Resp 19 10/19/20 06:00 BP 93/43 L 10/19/20 04:32 Pulse Ox 95 10/19/20 06:00
[2020-10-19] MEDS: Insulin Aspart 300 UNITS/3 ML PEN SC ×2 (08:40→12:00)
[2020-10-19] MEDS: Insulin Aspart 300 UNITS/3 ML PEN 10 UNITS SC ×2 (08:42→12:00)
[2020-10-19] MEDS: Insulin Glargine 300 UNITS/3 ML PEN 25 UNITS SC (08:43)
--- NOTE | 2020-10-19 10:17 | RESPIRATORY ---
Pt stated that he has 2lpm of oxygen at home through [facility]. Pt placed on 2lpm and was able to maintain an SpO2 greather than 90% at rest and with ambulation.
--- NOTE | 2020-10-19 12:42 | DSE_ITS ---
Date of service: 10/19/20 Time of Service: 12:42 DS: Diagnosis Discharge Diagnosis (1) Pneumonia due to COVID-19 virus: Status: Acute (2) Respiratory failure with hypoxia: Status: Acute (3) Diabetes mellitus type 2 in obese: Status: Chronic (4) Steroid-induced hyperglycemia: Status: Acute (5) Hypertension: Status: Chronic (6) High cholesterol: Status: Chronic (7) MAHESH (obstructive sleep apnea): Status: Chronic Asessment and Plan: not using CPAP at home (8) Obesity (BMI 30-39.9): Status: Chronic Discharge Plan Disposition Patient Disposition: HOME Condition: Improving Discharge Details Reason For Visit: COVID Positive, Pneumonia Admit Date/Time: 10/14/20 20:40 Admit Provider: Miguel Wong Attending Provider: Miguel Wong Primary Care Provider: Aishwarya Aiken Hospital Course Hospital Course: Mr Juarez is a 64 year old male with PMHx of T2DM, HTN, hyperlipidemia, MAHESH not using CPAP, as well as obesity with BMI of 36.4 kg/m2, who was admitted to [facility] ICU on 10/14/20 under the Hospitalist service for acute hypoxic respiratory failure due to COVID-19 pneumonia. The patient required CPAP with up to 50% FiO2 to saturate >90%. He received IV dexamethasone, remdesivir, and sarilumab. He was encouraged to prone and worked with incentive spirometry and vibra pep. He was being followed by pulmonology/critical Care (Dr Davila) who made recommendations for his care. The patient made continued improvement and was downgraded to medical surgical status on 10/16/20. His oxygen demand continued to decrease. He was weaned to humidified heated high flow nasal canula and, finally, to regular nasal canula at 2 L of O2. On ambulation for 6 minutes on oxygen, he required required 2L of O2, which is what he had at home from prior visit to [facility] ED. It is felt that the patient is stable for discharge home today from the oxygen-demand stand point. While there are a couple of lower blood pressure readings recorded on Mr Juarez overnight, this morning's BP is 115/96, and the patient is completely asymptomatic and wants to go home today no matter what. He is being discharged home with a short decadron taper and anti-tussives as well as albuterol inhaler. He can come off of aerosol precautions on 10/22/20. He is instructed to self-isolate until then. He is to follow up with his PCP in 1-2 weeks. Care for patient as well as completion of his discharge summary took 60 minutes on the day of discharge. Home Meds and New Rx's Prescriptions: New melatonin 3 mg Tablet 4.5 mg PO HS Qty: 60 RF: 0 dexamethasone [Decadron] 4 mg tablet See Rx Instructions .ROUTE .COMPLEX Qty: 3 RF: 0 famotidine [Pepcid] 20 mg tablet 20 mg PO BID Qty: 14 RF: 0 benzonatate [Tessalon Perles] 100 mg capsule 100 mg PO BID-TID PRN (Reason: cough) Qty: 30 RF: 0 albuterol sulfate [ProAir HFA] 90 mcg/actuation HFA aerosol inhaler 2 puff inhalation QID PRN (Reason: shortness of breath or wheezing) Qty: 8.5 RF: 0 Continued multivitamin Tablet 1 tab PO QPM RF: 0 metformin 500 mg Tablet 500 mg PO BID RF: 0 atorvastatin 20 mg Tablet 20 mg PO DAILY RF: 0 lisinopril 20 mg Tablet 20 mg PO DAILY RF: 0 sildenafil [Viagra] 25 mg Tablet 25 mg PO DAILY PRN PRN (Reason: Erectile Dysfunction) RF: 0 ascorbic acid (vitamin C) [Vitamin C] 500 mg Tablet 1,000 mg PO HS RF: 0 cyanocobalamin (vitamin B-12) Tablet,Chewable 2 tab PO DAILY RF: 0 cholecalciferol (vitamin D3) [Vitamin D3] 25 mcg (1,000 unit) Tablet 2,000 unit PO HS RF: 0 Discontinued doxycycline hyclate 100 mg Capsule 200 mg PO DAILY RF: 0 Discharge Instructions Instructions: COVID-19 (Coronavirus Disease 2019) (DC) Additional Instructions: You are being discharged home on oxygen - 2L of O2 at all times, including sleep. It is important to stay away from open fire when you are using oxygen (including stoves). Continue to self-isolate. Your last day of self-isolation should be 10/22/20. Return to the hospital with any worsening in your breathing, if you have any chest pain, or bleeding. Finish dexamethasone as prescribed. Increase your metformin to 1000 mg twice daily while on dexamethasone. Continue to lay on your stomach or your sides as much as possible. You may get vaccinated 3 weeks upon complete recovery. Referrals: Aishwarya Aiken [Primary Care Provider] - Activity:: Activity as Tolerated Equipment/Supplies:: O2 at 2L by [place] Diet:: Carb Counting Discharge Orders Discharge Orders: Discharge Order (Routine); Ordered 10/19/20 Ordered By: Veronica Mccormack DS: Summary Time Spent with Patient providing and/or coordinating discharge services: Greater than 30 minutes Status at Discharge Functional status at discharge: independent ambulation Overall status at discharge: patient is progressing back to baseline Mental Status: mental status grossly normal Speech and Movement: speech and movement normal Mood: congruent mood Affect: irritable affect Exam Narrative Exam Narrative: General: Obese male, A&Ox3, irritable, no dyspnea/tachypnea/cyanosis noted while on O2 at 2L HEENT: EOMI, MMM Heart: RRR, no m/r/ g Lungs: CTAB Abdomen: soft, nontender, nondistended Extremities: no edema BLE's Psych Mental Status: mental status grossly normal Speech and Movement: speech and movement normal Mood: congruent mood Affect: irritable affect DS: Data Vitals/I&O Vitals and I&O: Vital Signs Temperature 36.0 C L 10/18/20 23:50 Temperature Source Temporal Artery Scan 10/18/20 23:50 Pulse 47 L 10/19/20 04:32 Pulse Rhythm Regular 10/18/20 23:52 Pulse 54 L 10/19/20 06:00 Respiratory Rate 19 10/19/20 06:00 Respiratory Effort Non-Labored 10/18/20 23:52 Respiratory Depth Normal 10/18/20 23:52 Respiratory Pattern Normal 10/18/20 23:52 Blood Pressure 93/43 L 10/19/20 04:32 Blood Pressure Mean 56 10/19/20 04:32 Blood Pressure Position Left Lateral 10/16/20 13:30 Pulse Oximetry 92 10/19/20 10:27 Oxygen Delivery Method Nasal Cannula 10/19/20 10:27 Oxygen Flow Rate 40 10/18/20 16:45 Fraction of Inspired Oxygen (FIO2) 30 10/19/20 11:25 Pain Level 0 10/18/20 23:50 Comment 10/17/20 00:20 Intake & Output 10/18/20 10/19/20 10/19/20 23:59 11:59 23:59 Intake Total 1211.667 / 1551.667 Output Total 575 / 950 300 / 300 Balance 636.667 / 601.667 -300 / -300 Intake: IV 1.667 / 101.667 Oral 1210 / 1450 Output: Urine 575 / 950 300 / 300 Other: Urine Color Yellow Pale Yellow Urine Appearance Clear Clear Urine Odor None Voiding Methods Urinal Urinal Data Completed and Pending Completed studies during hospitalization [Text1]: CTA chest 10/14/20: No evidence of pulmonary embolism. Bilateral patchy infiltrates consistent patient's history of COVID Labs on day of discharge: Preliminary micro results at discharge 10/14/20 23:45 Blood Culture - Preliminary Blood NO GROWTH 96 HOURS 10/14/20 23:25 Blood Culture - Preliminary Blood NO GROWTH 96 HOURS [facility] Medical History (Updated 10/19/20 @ 13:29 by Veronica Mccormack MD) Diabetes mellitus High cholesterol Hypertension Obesity Family History Other Cancer Diabetes Social History Smoking/Tobacco Use Status: Former Tobacco Use Quit Date: 09/30/05 Tobacco: How many years used: 12 Smoking risk assessment performed?: Yes Alcohol Intake: never Drug use: Never Do you feel safe at home: Yes Do you feel safe in your relationship?: No Additional Social history: pt claimed he did not hit/hurt on his past relationships
[2020-10-19] MEDS: Multivitamin w/Minerals TAB 1 TAB PO (13:13)
[2020-10-19] MEDS: Albuterol HFA 8 GM 60 PUFF INH IH (14:52)
== END 2020-10-19 17:15 | disposition home or self-care (01) | DRG 177 ==
LOC: ICU 10-15 08:37 → MS 10-15 14:38 → ICU 10-16 06:35
PROVIDERS: Admitting Provider Family Medicine; PCP Internal Medicine; Visit Provider Family Medicine
DX: U07.1 COVID-19 (principal); J12.82 Pneumonia due to coronavirus disease 2019; J96.01 Acute respiratory failure with hypoxia; J98.11 Atelectasis; E66.9 Obesity, unspecified; Z79.84 Long term (current) use of oral hypoglycemic drugs; Z68.36 Body mass index [BMI] 36.0-36.9, adult; G47.33 Obstructive sleep apnea (adult) (pediatric); I10 Essential (primary) hypertension; E78.00 Pure hypercholesterolemia, unspecified; R42 Dizziness and giddiness; W18.39XA Other fall on same level, initial encounter; S01.01XA Laceration without foreign body of scalp, initial encounter; E11.65 Type 2 diabetes mellitus with hyperglycemia; T38.0X5A Adverse effect of glucocorticoids and synthetic analogues, initial encounter
CPT/HCPCS: 36415; 71275; 80053; 84145; 87040; 94640; J1650; J3590; 82728; 83615; 83735; 84484; 85025; 85379; 86140; 94660; 94667; 99220; 99232; 99233; 99239; J1100; J1940; J3490